=== PATIENT | male | born 1995 | race Caucasian/White ===

== ENCOUNTER 2017-06-26 08:27 | Emergency (ER) | payer SELFPAY ==
[~2017-06-26] VITALS: Ht 172.7 cm; Wt 67.0 kg
[~2017-06-26 08:27] MED LIST: IBUP-238 PO
[2017-06-26 08:29] VITALS: BP 137/73; PULSE 86; RESP 16; TEMP 97.5; O2SAT 99
[2017-06-26] MEDS ORDERED: CLIN300C5 PO (09:25)
--- NOTE | 2017-06-26 09:25 | PD ---
HPI Chief Complaint: Skin Problem Time Seen by Provider: 09:14 Travel History International Travel<30 days: No Contact w/Intl Traveler<30days: No Traveled to known affect area: No History of Present Illness HPI This is a 21-year-old male here for evaluation of right upper lip pain and swelling in 3 days. He reports that he had a small pimple-like pustule to the right upper lip in the hairline of his mustache which has progressively become increasingly more painful, red, swollen after he attempted to pop it. He denies fever or chills. He denies oral swelling or difficulty swallowing. No aggravating or alleviating factors. Symptoms severity is moderate. PFSH Past Medical History Medical History: Denies Significant Hx Cancer: No Cardiovascular Problems: No Diabetes: No Diminished Hearing: No Endocrine: No Genitourinary: No Hepatitis: No Hiatal Hernia: No Immune Disorder: No Musculoskeletal: No Neurologic: No Psychiatric: Yes (adhd) Reproductive: No Respiratory: No Thyroid Disease: No Past Surgical History AICD: No Joint Replacement: No Pacemaker: No Social History Alcohol Use: No Tobacco Use: Yes (1 ppd) Substance Use: Yes (daily marajuna) Allergies-Medications (Allergen,Severity, Reaction): Coded Allergies: shellfish derived (Unverified Allergy, Severe, Anaphylaxis, 06/26/17) Reported Meds & Prescriptions Reported Meds & Active Scripts Active Clindamycin (Clindamycin HCl) 300 Mg Cap 300 Mg PO Q6H Review of Systems Except as stated in HPI: all other systems reviewed are Neg General / Constitutional: No: Fever Physical Exam Narrative GENERAL: Alert well-appearing male. Nontoxic appearing. SKIN: Warm and dry. HEAD: Normocephalic. EYES: No scleral icterus. No injection or drainage. Mouth: Right upper lip with moderate swelling and induration. No fluctuance. Small central pustule with clear drainage. No oral swelling. Airway is patent. NECK: Supple, trachea midline. No JVD or lymphadenopathy. CARDIOVASCULAR: Regular rate and rhythm without murmurs, gallops, or rubs. RESPIRATORY: Breath sounds equal bilaterally. No accessory muscle use. Data Data Last Documented VS Vital Signs Date Time Temp Pulse Resp B/P (MAP) Pulse Ox O2 Delivery O2 Flow Rate FiO2 06/26/17 09:35 06/26/17 08:29 97.5 86 16 99 Room Air Orders Orders Ed Discharge Order (06/26/17 09:25) MDM Medical Decision Making Medical Screen Exam Complete: Yes Emergency Medical Condition: Yes Differential Diagnosis Abscess, cellulitis, folliculitis Narrative Course 21-year-old male here with early abscess to the right upper lip. Patient is nontoxic-appearing. He is afebrile. No oral airway swelling. Patient be treated with clindamycin and instructed to apply warm compresses and follow up with his PCP. Diagnosis Primary Impression: Facial cellulitis Referrals: [facility] Additional Instructions: Apply warm compresses to the area several times per day. Take the antibiotics as prescribed. Return if he developed new or worsening symptoms. Scripts Clindamycin (Clindamycin) 300 Mg Cap 300 MG PO Q6H for Infection, #40 CAP 0 Refills Prov: Dacia Vasques 06/26/17 Disposition: 01 DISCHARGE HOME Condition: Stable Dacia Vasques Jun 26, 2017 09:25
== END 2017-06-26 09:34 | disposition home or self-care (01) ==
LOC: NEPK 08:27
DX: L03.211 Cellulitis of face (principal); F17.200 Nicotine dependence, unspecified, uncomplicated
CPT/HCPCS: 99283